=== PATIENT | female | born 1960 | race Caucasian/White ===

== ENCOUNTER 2020-01-06 10:34 | Emergency (ER) | payer OTHER ==
[~2020-01-06] VITALS: Ht 152.4 cm; Wt 74.8 kg
[2020-01-06 10:56] VITALS: BP 132/81
[2020-01-06] MEDS ORDERED: CHOL2400 (11:09)
[2020-01-06] MEDS ORDERED: VITA1TAB44 PO (11:09)
[2020-01-06] MEDS ORDERED: ORE25 PO (11:09)
[2020-01-06] MEDS ORDERED: BENA20TA PO (11:09)
[2020-01-06] MEDS ORDERED: CETI-120 PO (11:09)
[2020-01-06] MEDS ORDERED: SERT50TA PO (11:09)
[2020-01-06] MEDS ORDERED: ATOR20TA PO (11:09)
--- NOTE | 2020-01-06 11:10 | NUR ---
Patient ambulated to bed 11. RN evaluating patient at bedside.
--- NOTE | 2020-01-06 11:10 | NUR ---
Pt presents to the ER with room spinning dizziness and had one episode of snycope this morning upon awaking that she felt dizzy and started seeing little stars and fell on her knees followed by nausea. Pt also c/o having loose stool and hot flushes for 3 days. Otherwise denies fever, cough, cp, sob, abdominal pain, vomiting, or headache. No facial asymmtry noticed, pt has full clear speech and A&OX4. PATIENT STATES PAIN OF 0/10 AT THIS TIME; VSS; PATIENT POSITIONED FOR COMFORT; HOB ELEVATED; BEDRAILS UP X2; BED DOWN. ER MD MADE AWARE OF PT STATUS.
--- NOTE | 2020-01-06 11:22 | NUR ---
Dr. Piña is evaluating pt at bedside.
[2020-01-06] MEDS ORDERED: MECLIZINE 25 MG TAB PO ONE (11:25)
--- NOTE | 2020-01-06 11:28 | NUR ---
Kaleb owens in [facility] - 01/06/20 at 1135 by SANDY PT IS TAKING TO XRAY AND CT SCAN VIA WC.
--- NOTE | 2020-01-06 11:28 | NUR ---
PT IS TAKING TO XRAY AND CT SCAN VIA .
--- NOTE | 2020-01-06 11:40 | NUR ---
PT HAS BEEN TAKEN BACK FROM CT SCAN VIA WC.
[2020-01-06 12:59] VITALS: BP 110/74
== END 2020-01-06 12:59 | disposition home or self-care (01) ==
LOC: MED 10:34
DX: R42 Dizziness and giddiness (principal); F32.9 Major depressive disorder, single episode, unspecified; I10 Essential (primary) hypertension; Z79.899 Other long term (current) drug therapy
CPT/HCPCS: 70450; 71045; 99284; J8597; Q0092

== ENCOUNTER 2020-01-07 16:28 | Emergency (ER) | payer OTHER ==
[~2020-01-07] VITALS: Ht 152.4 cm; Wt 74.8 kg
[~2020-01-07 16:28] MED LIST: ATOR20TA PO; BENA20TA PO; CETI-120 PO; CHOL2400; ORE25 PO; SERT50TA PO; VITA1TAB44 PO
[2020-01-07 16:36] VITALS: BP 143/90
[2020-01-07] MEDS ORDERED: ACETAMINOPHEN EXTRA STRENGTH 500 MG TAB PO ONE (16:40)
[2020-01-07] MEDS ORDERED: NACL 0.9% 500 ML IV SCH (16:41)
--- NOTE | 2020-01-07 16:47 | NUR ---
Dr. Piña is evaluating the patient at bedside.
--- NOTE | 2020-01-07 16:50 | NUR ---
59 Y/O FEMALE FROM HOME C/O 2 EPISODES OF SYNCOPE WITNESSED BY SON TODAY. PT WAS SEEN AT [facility] YESTERDAY FOR SAME COMPLAINT. DENIES HITTING HEAD. STATES SLIGHT NAUSEA, NO VOMITING/DIARRHEA. AFEBRILE UPON ARRIVAL. RR EVEN AND UNLABORED. PT AWAKE AND ALERT. PLACED ON SALES AND SERVICE AGENT, PULSE OX, AND BP CUFF. VSS MEDHX: HTN
--- NOTE | 2020-01-07 16:55 | NUR ---
18G IV PLACED TO LT AC, BLOOD CULTURES AND LABS DRAWN AT THIS TIME.
[2020-01-07 17:12] LABS: BASOPHILS % (AUTO) 0.4 % (0.0-2.0); EOSINOPHILS % (AUTO) 0.1 % (0.0-4.0); HEMATOCRIT 38.7 % (36-48); HEMOGLOBIN 13.3 g/dL (12.0-16.0); LYMPHOCYTES # (AUTO) 1.2 K/uL (2.5-16.5); MEAN CORPUSCULAR HEMOGLOBIN 31 pg (27-31); MEAN CORPUSCULAR HGB CONC 34 g/dL (33-37); MEAN CORPUSCULAR VOLUME 89.8 fL (80-94); MONOCYTES # (AUTO) 0.5 K/uL (0.8-1.0); NEUTROPHILS # (AUTO) 3.5 K/uL (1.8-7.7); NEUTROPHILS % (AUTO) 66.5 % (42.2-75.2); PLATELET COUNT (AUTO) 170 K/uL (140-450); RED CELL DISTRIBUTION WIDTH 13.8 % (11.6-13.7); WHITE BLOOD COUNT (AUTO) 5.3 K/uL (4.8-10.8)
--- NOTE | 2020-01-07 17:14 | NUR ---
X-Ray at bedside.
--- NOTE | 2020-01-07 17:24 | NUR ---
PT WHEELCHAIR ASSISTED TO RESTROOM FOR COLLECTION OF URINE
[2020-01-07 17:28] LABS: PROTHROMBIN TIME 10.5 secs (10.8-13.4)
[2020-01-07 17:31] LABS: ALBUMIN 3.5 g/dL (3.4-5.0); ANION GAP 15.4 (8-16); CARBON DIOXIDE 27.5 mmol/L (21-32); CREATININE 1.2 mg/dL (0.6-1.3); TOTAL BILIRUBIN 0.7 mg/dL (0.0-1.0)
[2020-01-07 17:38] LABS: POTASSIUM 2.9 mmol/L (3.5-5.1)
[2020-01-07] MEDS ORDERED: POTASSIUM CHLORIDE 10 MEQ TABER PO ONE (17:40)
[2020-01-07] MEDS ORDERED: MAG SULF 2000 MG/WATER PREMIX 50 ML IV ONE (17:40)
[2020-01-07 17:50] LABS: APPEARANCE,URINE HAZY (CLEAR); BILIRUBIN,URINE NEGATIVE (NEGATIVE); BLOOD, URINE 1+ (NEGATIVE); COLOR,URINE DARK YELLOW (YELLOW); LEUKOCYTE ESTERASE ,URINE 1+ (NEGATIVE); NITRITE, URINE NEGATIVE (NEGATIVE); UGLUCOSE NEGATIVE (NEGATIVE)
[2020-01-07] MEDS ORDERED: NACL 0.9% 1,000 ML IV ONE (17:55)
--- NOTE | 2020-01-07 18:04 | NUR ---
RESTING IN BED ON CELL PHONE, AWAKE AND ALERT. REMAINS ON TURF AND GROUNDS SUPERVISOR. VSS. WILL CONTINUE TO MONITOR
--- NOTE | 2020-01-07 18:33 | NUR ---
PT AMBULATED TO RESTROOM WITH STEADY GAIT
--- NOTE | 2020-01-07 19:08 | NUR ---
REPORT GIVEN TO TERRI VASQUEZ. TRANSFER OF CARE AT THIS TIME
--- NOTE | 2020-01-07 19:09 | NUR ---
REPORT RECEIVED FROM TERRI SCHWARTZ FOR CONTINUATION OF CARE.
--- NOTE | 2020-01-07 19:15 | NUR ---
PT AMBULATED TO RESTROOM W/ STEADY GAIT.
[2020-01-07 19:20] LABS: RBC,URINE 0-5 /HPF (0-5)
--- NOTE | 2020-01-07 19:20 | NUR ---
PT AMBULATED TO BED FROM RESTROOM W/ STEADY GAIT. PT RECONNECTED TO IV , HALL CLERK, PULSE OX AND BP CUFF. PT RESTING IN BED, LOCKED AND IN LOWEST POSITION, HOB ELEVATED, SIDE RAIL X1.
--- NOTE | 2020-01-07 19:32 | NUR ---
PER DR. SELF WAIT FOR PT IVPB MAG TO FINISH AND THEN D/C PT.
--- NOTE | 2020-01-07 20:18 | NUR ---
PT AMBULATED TO RESTROOM W/ STEADY GAIT.
--- NOTE | 2020-01-07 20:21 | NUR ---
PT AMBULATED TO BED FROM RESTROOM W/ STEADY GAIT.
[2020-01-07 20:44] VITALS: BP 134/80
--- NOTE | 2020-01-07 20:44 | NUR ---
Patient discharged with v/s stable. Written and verbal after care instructions given and explained. Patient alert, oriented and verbalized understanding of instructions. Ambulatory with steady gait. All questions addressed prior to discharge. ID band removed. Patient advised to follow up with PMD. Rx of CIPRO AND SUDAFED given. Patient educated on indication of medication including possible reaction and side effects. Opportunity to ask questions provided and answered.
== END 2020-01-07 20:44 | disposition home or self-care (01) ==
LOC: MED 16:28
DX: E87.6 Hypokalemia (principal); R55 Syncope and collapse; R19.7 Diarrhea, unspecified; R11.10 Vomiting, unspecified; R50.9 Fever, unspecified; I10 Essential (primary) hypertension; Z79.899 Other long term (current) drug therapy
CPT/HCPCS: 36415; 71045; 80053; 81001; 83605; 83880; 84484; 85025; 85610; 85730; 87040; 87086; 87186; 93005; 96361; 96365; 96366; 99285; J3475; J7030; Q0092; 96360

== ENCOUNTER 2020-01-08 09:07 | Emergency (ER) | payer OTHER ==
[~2020-01-08] VITALS: Ht 152.4 cm; Wt 74.8 kg
[2020-01-08 09:26] VITALS: BP 151/97
--- NOTE | 2020-01-08 09:50 | NUR ---
KIAH MORTENSEN AT BEDSIDE, NO INTERVENTIONS ORDERED AT THIS TIME
[2020-01-08 10:31] VITALS: BP 151/97
--- NOTE | 2020-01-08 10:31 | NUR ---
Patient discharged with v/s stable. Written and verbal after care instructions given and explained. Patient alert, oriented and verbalized understanding of instructions. Ambulatory with steady gait. All questions addressed prior to discharge. ID band removed. Patient advised to follow up with PMD. Rx of IMMODIUM, AMOXICILLIN, SCOPOLAMINE given. Patient educated on indication of medication including possible reaction and side effects. Opportunity to ask questions provided and answered.
== END 2020-01-08 10:31 | disposition home or self-care (01) ==
LOC: MED 09:07
DX: R19.7 Diarrhea, unspecified (principal); I10 Essential (primary) hypertension; Z79.899 Other long term (current) drug therapy
CPT/HCPCS: 99283; C1758

== ENCOUNTER 2020-01-15 10:00 | Emergency (ER) | payer OTHER ==
[~2020-01-15] VITALS: Ht 152.4 cm; Wt 76.3 kg
[2020-01-15 10:39] VITALS: BP 161/68
--- NOTE | 2020-01-15 10:45 | NUR ---
pt ambulated to tent with steady gait.
[2020-01-15 12:07] VITALS: BP 161/68
--- NOTE | 2020-01-15 12:08 | NUR ---
Patient discharged with v/s stable. Written and verbal after care instructions given and explained. Patient alert, oriented and verbalized understanding of instructions. Ambulatory with steady gait. All questions addressed prior to discharge. ID band removed. Patient advised to follow up with PMD. Rx of AZITHROMYCIN given. Patient educated on indication of medication including possible reaction and side effects. Opportunity to ask questions provided and answered.
== END 2020-01-15 12:08 | disposition home or self-care (01) ==
LOC: MED 10:00
DX: U07.1 COVID-19 (principal); I10 Essential (primary) hypertension; Z79.899 Other long term (current) drug therapy
CPT/HCPCS: 71045; 99283

== ENCOUNTER 2020-02-12 14:22 | Emergency (ER) | payer OTHER ==
[~2020-02-12] VITALS: Ht 152.4 cm; Wt 81.2 kg
[2020-02-12 14:24] VITALS: BP 165/91
--- NOTE | 2020-02-12 15:26 | NUR ---
Patient discharged with v/s stable. Written and verbal after care instructions given and explained. Patient alert, oriented and verbalized understanding of instructions. Ambulatory with steady gait. All questions addressed prior to discharge. ID band removed. Patient advised to follow up with PMD. Rx of IMMODIUM AND MECLIZINE given. Patient educated on indication of medication including possible reaction and side effects. Opportunity to ask questions provided and answered. PT SEEN AND DISCHARGED BY MANUEL MALLOY.
[2020-02-12 15:27] VITALS: BP 165/91
== END 2020-02-12 15:26 | disposition home or self-care (01) ==
LOC: MED 14:22
DX: U07.1 COVID-19 (principal); I10 Essential (primary) hypertension; Z79.899 Other long term (current) drug therapy
CPT/HCPCS: 99282

== ENCOUNTER 2020-03-03 15:23 | Emergency (ER) | payer OTHER ==
[~2020-03-03] VITALS: Ht 152.4 cm; Wt 83.9 kg
[2020-03-03 15:31] VITALS: BP 156/108
--- NOTE | 2020-03-03 15:46 | NUR ---
PT C/O REPEATED THROAT CLOSING AND EARS CONGESTED AND NOSE CONGESTED WITH FAST RESPIRATION SUDDEN ONSETS---DRY MOUTH UNABLE TO SWALLOW--- WITH PARESTHESIA TO HANDS AND SPASM ADDS TODAY HEMORRHOIDS WITH BRIGHT RED BLOOD IN STOOL TODAY
--- NOTE | 2020-03-03 15:47 | NUR ---
PT AMBULATED TO BED 5.
--- NOTE | 2020-03-03 16:22 | NUR ---
Dr De La O at bedside examining pt
[2020-03-03] MEDS ORDERED: KETOROLAC 30 MG/ML VIAL IM ONE (16:25)
--- NOTE | 2020-03-03 16:32 | NUR ---
X-Ray at bedside.
[2020-03-03 16:51] LABS: BASOPHILS # (AUTO) 0.1 K/uL (0.00-0.22); BASOPHILS % (AUTO) 0.8 % (0.0-2.0); EOSINOPHILS # (AUTO) 0.2 K/uL (0-0.4); EOSINOPHILS % (AUTO) 2.3 % (0.0-4.0); HEMATOCRIT 36.3 % (36-48); HEMOGLOBIN 12.7 g/dL (12.0-16.0); LYMPHOCYTES # (AUTO) 2.2 K/uL (2.5-16.5); LYMPHOCYTES % (AUTO) 30.6 % (20.5-51.1); MEAN CORPUSCULAR HEMOGLOBIN 32 pg (27-31); MEAN CORPUSCULAR HGB CONC 35 g/dL (33-37); MEAN CORPUSCULAR VOLUME 91.6 fL (80-94); MONOCYTES # (AUTO) 0.8 K/uL (0.8-1.0); MONOCYTES % (AUTO) 10.7 % (1.7-9.3); NEUTROPHILS % (AUTO) 55.6 % (42.2-75.2); PLATELET COUNT (AUTO) 179 K/uL (140-450); RED BLOOD CELL COUNT(AUTO) 3.96 MIL/uL (4.20-5.40); RED CELL DISTRIBUTION WIDTH 15.1 % (11.6-13.7); WHITE BLOOD COUNT (AUTO) 7.1 K/uL (4.8-10.8)
[2020-03-03 16:55] LABS: ANION GAP 15.5 (8-16); CREATININE 0.8 mg/dL (0.6-1.3); POTASSIUM 3.5 mmol/L (3.5-5.1)
--- NOTE | 2020-03-03 17:59 | NUR ---
Pt resting in bed awake and alert, positioned for comfort.
[2020-03-03 18:12] VITALS: BP 148/91
--- NOTE | 2020-03-03 18:13 | NUR ---
Patient discharged with v/s stable. Written and verbal after care instructions given and explained. Patient verbalized understanding. Ambulatory with steady gait. All questions addressed prior to discharge. Advised to follow up with PMD.
== END 2020-03-03 18:13 | disposition home or self-care (01) ==
LOC: MED 15:23
DX: R07.9 Chest pain, unspecified (principal); H61.23 Impacted cerumen, bilateral; K62.5 Hemorrhage of anus and rectum
CPT/HCPCS: 36415; 71045; 80048; 84484; 85025; 93005; 96372; 99285; J1885; Q0092

== ENCOUNTER 2022-10-24 14:47 | Emergency (ER) | payer OTHER ==
[~2022-10-24] VITALS: Ht 152.4 cm; Wt 81.6 kg
[~2022-10-24 14:47] MED LIST changes: -CETI-120 PO; +CETI10TA81 PO; +HYDR-4004 PO; -ORE25 PO
[2022-10-24 15:02] VITALS: BP 117/81
--- NOTE | 2022-10-24 15:07 | NUR ---
PT AMBULATED W/ ASSIST TO BED 7
[2022-10-24] MEDS ORDERED: KETOROLAC 30 MG/ML VIAL IM ONE (15:25)
--- NOTE | 2022-10-24 15:30 | NUR ---
61YO FEMALE PT C/O R LEG PAIN XYESTERDAY. SHARP KNEE PAIN ON MOVEMENT OR BEARING WEIGHT. REPORTS " TWISTING" KNEE WHILE GETTING OUT OF CAR. DENIES NUMBING OR LOSS OF SENSATION. AMB W/ ASSIST. LEG AND KNEE W/O VISIBLE DEFORMITY. PT AAOX4, ASSISTED TO BED. HX: HTN, DIABETES NKA
[2022-10-24] MEDS ORDERED: IBUP-2213 PO (16:26)
--- NOTE | 2022-10-24 16:50 | NUR ---
Patient discharged with v/s stable. Written and verbal after care instructions FOR KNEE SPRAIN given and explained. Patient alert, oriented and verbalized understanding of instructions. Wheel Chair Assisted with to car. All questions addressed prior to discharge. ID band removed. Patient advised to follow up with PMD. Rx of IBUPROFEN given. Opportunity to ask questions provided and answered.
--- NOTE | 2022-10-24 16:50 | NUR ---
PT RETURNED SAFE DEMONSTRATION OF CRUTCHES. ORTIZ WRAP X 1 APPLIED TO R KNEE.
--- NOTE | 2022-10-24 16:50 | NUR ---
The patient's care was reviewed and supervised by KARLI WARD RN.
== END 2022-10-24 16:50 | disposition home or self-care (01) ==
LOC: MED 14:47
DX: S83.91XA Sprain of unspecified site of right knee, initial encounter (principal); I10 Essential (primary) hypertension; Z79.899 Other long term (current) drug therapy; Z79.1 Long term (current) use of non-steroidal anti-inflammatories (NSAID); X50.1XXA Overexertion from prolonged static or awkward postures, initial encounter; Y93.89 Activity, other specified; Y92.89 Other specified places as the place of occurrence of the external cause; Y99.8 Other external cause status
CPT/HCPCS: 73562; 96372; 99283; J1885; Q0092

== ENCOUNTER 2023-11-02 09:57 | Emergency (ER) | payer OTHER ==
[~2023-11-02] VITALS: Ht 149.9 cm; Wt 83.1 kg
[~2023-11-02 09:57] MED LIST changes: +IBUP-2213 PO
[2023-11-02 10:12] VITALS: BP 123/83; PULSE 88; RESP 16; TEMP 98.2; O2SAT 96
[2023-11-02 12:10] VITALS: BP 120/81; PULSE 86; RESP 18; TEMP 98.3; O2SAT 97
[2023-11-02 13:03] LABS: FLU A ANTIGEN negative (NEGATIVE); FLU B ANTIGEN negative (NEGATIVE)
[2023-11-02] MEDS ORDERED: IBUP-2213 PO (13:06)
[2023-11-02] MEDS ORDERED: BENZ100C6 PO (13:06)
[2023-11-02] MEDS: KETOROLAC 30 MG/ML VIAL IM ONE (13:17)
[2023-11-02] MEDS: DEXAMETHASONE 10 MG/ML VIAL IM ONE (13:17)
== END 2023-11-02 13:18 | disposition home or self-care (01) ==
LOC: MED 09:57
DX: J20.9 Acute bronchitis, unspecified (principal); E11.9 Type 2 diabetes mellitus without complications; I10 Essential (primary) hypertension; Z20.822 Contact with and (suspected) exposure to COVID-19; Z79.1 Long term (current) use of non-steroidal anti-inflammatories (NSAID); Z79.899 Other long term (current) drug therapy
CPT/HCPCS: 71045; 87081; 87426; 87804; 96372; 99284; J1100; J1885

== ENCOUNTER 2024-02-09 19:50 | Emergency (ER) | payer OTHER ==
[~2024-02-09] VITALS: Ht 149.9 cm; Wt 83.0 kg
[~2024-02-09 19:50] MED LIST changes: +BENZ100C6 PO
[2024-02-09 20:34] VITALS: PULSE 108; RESP 16; TEMP 99.6; O2SAT 98
[2024-02-09] MEDS ORDERED: BENZ-300 PO (21:14)
[2024-02-09] MEDS: IBUPROFEN 600 MG TAB PO ONE (21:32)
[2024-02-09 21:48] LABS: FLU A ANTIGEN negative (NEGATIVE); FLU B ANTIGEN NEGATIVE (NEGATIVE)
== END 2024-02-09 21:43 | disposition home or self-care (01) ==
LOC: MED 19:50
DX: J06.9 Acute upper respiratory infection, unspecified (principal); B97.89 Other viral agents as the cause of diseases classified elsewhere; Z20.822 Contact with and (suspected) exposure to COVID-19; E11.9 Type 2 diabetes mellitus without complications; I10 Essential (primary) hypertension; E78.00 Pure hypercholesterolemia, unspecified; Z79.899 Other long term (current) drug therapy
CPT/HCPCS: 99282